=== PATIENT | female | born 1990 | race Caucasian/White ===

== ENCOUNTER 2020-06-17 07:43 | Day surgery (SDC) | payer BC ==
[~2020-06-17 07:43] MED LIST: Lactated Ringers 1,000 ML IV SCH; Midazolam 1 MG/ML 2 ML SDV ONE; Propofol 200 MG/20 ML SDV ONE; Sodium Chloride 0.9% 10 ML SDV IV PRN; Sodium Chloride 0.9% 10 ML Syringe FLUSH PRN; Sodium Chloride 0.9% 2.5 ML Syringe FLUSH PRN; fentaNYL 100 MCG/2 ML SDV ONE
[2020-06-17] MEDS ORDERED: Sodium Chloride 0.9% 0 ML ONE (08:08)
[2020-06-17] MEDS ORDERED: ceFAZolin 1 GM Vial ONE (08:08)
--- NOTE | 2020-06-17 08:29 | PCM.PREANE ---
Preanesthetic Assessment - Anesthesia/Transfusion/Family Hx Anesthesia History: Prior Anesthesia Without Reaction Family History of Anesthesia Reaction: No Transfusion History: No Prior Transfusion(s) - Review of Systems General: No Symptoms Pulmonary: No Symptoms Cardiovascular: No Symptoms Gastrointestinal: No Symptoms Neurological: No Symptoms Other: Reports: None - Physical Assessment NPO Status Date: 06/16/20 Vital Signs: Last Vital Signs Temp 98.2 F 06/17/20 08:18 Pulse 67 06/17/20 08:18 Resp 16 06/17/20 08:18 BP 119/73 06/17/20 08:18 Pulse Ox 96 06/17/20 08:18 Height: 5 ft 4.5 in Weight: 68.946 kg ASA Class: 2 Mental Status: Alert & Oriented x3 Airway Class: Mallampati = 1 Dentition: Reports: Normal Dentition ROM/Head Extension: Full Lungs: Clear to Auscultation, Normal Respiratory Effort Cardiovascular: Regular Rate, Regular Rhythm - Lab Values: Laboratory Last Values WBC 6.36 K/uL (4.0-11.0) 06/14/20 09:39 RBC 4.72 M/uL (4.30-5.90) 06/14/20 09:39 Hgb 14.6 g/dL (12.0-16.0) 06/14/20 09:39 Hct 44.9 % (36.0-46.0) 06/14/20 09:39 MCV 95.1 fL (80.0-98.0) 06/14/20 09:39 MCH 30.9 pg (27.0-32.0) 06/14/20 09:39 MCHC 32.5 g/dL (31.0-37.0) 06/14/20 09:39 RDW Std Deviation 44.0 fl (28.0-62.0) 06/14/20 09:39 RDW Coeff of Bess 13 % (11.0-15.0) 06/14/20 09:39 Plt Count 260 K/uL (150-400) 06/14/20 09:39 MPV 10.90 fL (7.40-12.00) 06/14/20 09:39 Nucleated RBC % 0.0 /100WBC 06/14/20 09:39 Nucleated RBCs # 0 K/uL 06/14/20 09:39 Urine HCG, Qual NEGATIVE (NEGATIVE) 06/14/20 09:31 - Allergies Allergies/Adverse Reactions: Allergies Allergy/AdvReac Type Severity Reaction Status Date / Time No Known Allergies Allergy Verified 06/17/20 08:18 - Blood Blood Available: No - Anesthesia Plan Pre-Op Medication Ordered: None - Acknowledgements Anesthesia Type Planned: General Anesthesia Pt an Appropriate Candidate for the Planned Anesthesia: Yes Alternatives and Risks of Anesthesia Discussed w Pt/Guardian: Yes Pt/Guardian Understands and Agrees with Anesthesia Plan: Yes Additional Comments: PLAN: [email or web address]/lma PreAnesthesia Questionnaire HEENT History: Reports: Other (See Below) Other HEENT History: wears glasses Cardiovascular History: Reports: None Respiratory History: Reports: None Gastrointestinal History: Reports: None Genitourinary History: Reports: None [employer]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 , Musculoskeletal History: Reports: None Neurological History: Reports: None Psychiatric History: Reports: None Endocrine/Metabolic History: Reports: None Hematologic History: Reports: None Immunologic History: Reports: None Oncologic (Cancer) History: Reports: None Dermatologic History: Reports: None - Past Surgical History Head Surgeries/Procedures: Reports: None HEENT Surgical History: Reports: None Cardiovascular Surgical History: Reports: None Respiratory Surgical History: Reports: None GI Surgical History: Reports: None Female Surgical History: Reports: None Endocrine Surgical History: Reports: None Neurological Surgical History: Reports: None Musculoskeletal Surgical History: Reports: Arthroscopic Knee Oncologic Surgical History: Reports: None Dermatological Surgical History: Reports: None - SUBSTANCE USE Smoking Status *Q: Never Smoker - HOME MEDS Home Medications: Home Meds Levonorgestrel/Ethin.estradiol [Falmina-28 Tablet] 1 tab PO DAILY 06/11/20 [History] - CURRENT (IN HOUSE) MEDS Current Meds: Current Medications Lactated Ringer's (Ringers, Lactated) 1,000 mls @ 125 mls/hr IV ASDIRECTED EBONY Last Admin: 06/17/20 08:15 Dose: 125 mls/hr Documented by: Sodium Chloride (Saline Flush) 10 ml FLUSH ASDIRECTED PRN PRN Reason: Keep Vein Open Sodium Chloride (Saline Flush) 2.5 ml FLUSH ASDIRECTED PRN PRN Reason: Keep Vein Open Sodium Chloride (Normal Saline) 10 ml IV ASDIRECTED PRN PRN Reason: IV Use Discontinued Medications Cefazolin Sodium (Ancef) Confirm Administered Dose 1 gm .ROUTE .STK-MED ONE Stop: 06/17/20 08:09 Fentanyl (Sublimaze) Confirm Administered Dose 100 mcg .ROUTE .STK-MED ONE Stop: 06/17/20 07:19 Sodium Chloride (Normal Saline) Confirm Administered Dose 20 mls @ as directed .ROUTE .STK-MED ONE Stop: 06/17/20 08:09 Lidocaine HCl (Xylocaine-Mpf 1%) Confirm Administered Dose 10 ml .ROUTE .STK-MED ONE Stop: 06/17/20 07:19 Midazolam HCl (Versed 1 Mg/Ml) Confirm Administered Dose 2 mg .ROUTE .STK-MED ONE Stop: 06/17/20 07:19 Propofol (Diprivan 20 Ml) Confirm Administered Dose 400 mg .ROUTE .STK-MED ONE Stop: 06/17/20 07:19
[2020-06-17] MEDS ORDERED: Propofol 200 MG/20 ML SDV ONE (09:01)
--- NOTE | 2020-06-17 09:27 | PCM.OPNOTE ---
- General Post-Op/Procedure Note Date of Surgery/Procedure: 06/17/20 Operative Procedure(s): LEEP Findings: PPO 2-3 on biopsy Pre Op Diagnosis: POP II-III Post-Op Diagnosis: same Anesthesia Technique: Local, MAC Primary Surgeon: She Mason Fluid Replacement, Intraop: 600 EBL in mLs: 10 Complications: none known Condition: Good
[2020-06-17] MEDS ORDERED: Acetaminophen 1,000 MG in Premix Bag 1 BAG IV ONE (09:37)
[2020-06-17] MEDS ORDERED: Ketorolac 30 MG/ML SDV IVPUSH ONE (09:39)
--- NOTE | 2020-06-17 10:37 | PCM.POSTAN ---
POST ANESTHESIA ASSESSMENT - MENTAL STATUS Mental Status: Alert, Oriented - VITAL SIGNS Vital Signs: Last Vital Signs Temp 98.2 F 06/17/20 08:18 Pulse 62 06/17/20 09:54 Resp 14 06/17/20 09:54 BP 110/68 06/17/20 09:54 Pulse Ox 100 06/17/20 09:54 - RESPIRATORY Respiratory Status: Respiratory Rate WNL, Airway Patent, O2 Saturation Stable - CARDIOVASCULAR CV Status: Pulse Rate WNL, Blood Pressure Stable - GASTROINTESTINAL GI Status: No Symptoms - POST OP HYDRATION Hydration Status: Adequate & Stable
--- NOTE | 2020-06-17 15:45 | OR ---
SURGEON: She Mason M.D. DATE OF PROCEDURE: 06/17/2020 PREOPERATIVE DIAGNOSIS: Cervical intraepithelial neoplasia 2/3. POSTOPERATIVE DIAGNOSIS: Cervical intraepithelial neoplasia 2/3. PROCEDURE: Loop electrosurgical excision procedure of cervix. PRIMARY SURGEON: She Mason MD ANESTHESIA: MAC with local. ESTIMATED BLOOD LOSS: 10 mL. FLUIDS: 600 mL of crystalloid. COMPLICATIONS: None known. FINDINGS: POP 2/3 of the cervix on biopsy. DISPOSITION: The patient to PACU in stable condition. PROCEDURE DETAILS: Sergio is a 30-year-old who presents today with biopsy-proven POP 2 to 3 for a LEEP procedure. Risks of procedure have been discussed. Proper consent obtained. The patient was taken to the operating room where she underwent MAC anesthetic, placed in modified dorsal position. A time-out was performed. A coated speculum was introduced in the vagina as well as sidewall retractors. Cervix was prepped with acetic acid followed by Lugol's solution. A cervical block was now performed with 1% lidocaine and epinephrine. Please see nurse's notes for total dispensed during the procedure. Excision of the posterior lip was performed with a 20 x 8 mm loop followed by anterior lip of the same size loop and a 5 mm endocervical hat resection. The specimens will be sent to pathology for further analysis. Wound bed was now cauterized. The endocervix was cannulized with sound and Monsel's was placed. Hemostasis appeared evident. The patient tolerated the procedure well overall. All instruments removed from the vagina. Sponge count and instrument count were correct. The patient will go to PACU in stable condition, specimen to pathology. CARLIN / MARYANN /[id number]
== END 2020-06-17 10:45 | disposition home or self-care (01) ==
LOC: MW.SDS 07:43
PROVIDERS: ATTEND Obstetrics & Gynecology
DX: N87.1 Moderate cervical dysplasia (principal); Z79.899 Other long term (current) drug therapy
CPT/HCPCS: 36415; 57522; 81025; 85027; 88305; 88307; J1885; J2001; J2250; J2704; J3010; J7120; 00940; J0690